=== PATIENT | female | born 1965 | race Caucasian/White ===

== ENCOUNTER → 2024-01-05 07:41 | Outpatient (REF) | payer OTHER, SELFPAY | LOC: HWRAD 07:41 | PROVIDERS: ATTENDING PHYSICIAN Nurse Practitioner Family | DX: D73.89 Other diseases of spleen (principal) | CPT/HCPCS: 76700 ==

== ENCOUNTER → 2024-05-01 07:39 | Outpatient (REF) | payer OTHER, SELFPAY | LOC: HWWDC 07:39 | PROVIDERS: ATTENDING PHYSICIAN Nurse Practitioner Family | DX: Z12.31 Encounter for screening mammogram for malignant neoplasm of breast (principal); Z13.820 Encounter for screening for osteoporosis | CPT/HCPCS: 77063; 77067; 77080 ==

== ENCOUNTER → 2024-06-25 07:33 | Outpatient (REF) | payer OTHER, SELFPAY | LOC: HWRAD 07:33 | PROVIDERS: ATTENDING PHYSICIAN Nurse Practitioner Family | DX: E04.1 Nontoxic single thyroid nodule (principal) | CPT/HCPCS: 76536 ==

== ENCOUNTER → 2024-07-09 13:55 | Outpatient (REF) | payer OTHER, SELFPAY | LOC: RAD 13:55 | PROVIDERS: ATTENDING PHYSICIAN Nurse Practitioner Family | DX: R59.0 Localized enlarged lymph nodes (principal) | CPT/HCPCS: 70492; Q9967 ==

== ENCOUNTER → 2025-03-08 13:52 | Outpatient (REF) | payer OTHER, SELFPAY | LOC: PAVMRI 13:52 | PROVIDERS: ATTENDING PHYSICIAN Nurse Practitioner Family | DX: H93.11 Tinnitus, right ear (principal); H90.5 Unspecified sensorineural hearing loss | CPT/HCPCS: 70551 ==